=== PATIENT | female | born 1945 | race Two or more races ===

== ENCOUNTER 2017-01-01 12:47 | Emergency (ER) | payer MEDICAID ==
[~2017-01-01] VITALS: Ht 160 cm; Wt 59.9 kg
[2017-01-01] MEDS ORDERED: NKM (12:59)
[2017-01-01 13:04] VITALS: BP 149/80
--- NOTE | 2017-01-01 13:24 | Emergency Room Report ---
History of Present Illness General Chief Complaint: Upper Respiratory Illness Source: Patient (EFRAÍN NARVAEZ) Present Illness HPI The patient is a 71-year-old female presenting for multiple complaints including subjective fevers, nasal congestion, headache, tooth pain, and lower back pain. She states that the lower back pain has been chronic and has not been able to obtain and MRI due to lack of insurance. Pain is described as a 6/ 10 dull ache to the mid lower back and does not radiate. Worse with movement. She denies any numbness or tingling. She denies any incontinence. Tooth pain described as an 8/10 dull ache to the right upper teeth and is worse with chewing. She states that she had dental work done several months prior to this area. She denies any other symptoms including N, V, SOB, CP, sore throat, cough, hemoptysis, abd pain, dysuria, vaginal DC, diarrhea, constipation (EFRAÍN NARVAEZ) Allergies: Coded Allergies: No Known Allergies (Unverified , 01/01/17) Patient History Past Medical History: see triage record Pertinent Family History: none Reviewed Nursing Documentation: PMH: Agreed, PSxH: Agreed (EFRAÍN NARVAEZ) Nursing Documentation-PMH Past Medical History: No Stated History (EFRAÍN NARVAEZ) Review of Systems All Other Systems: negative except mentioned in HPI (EFRAÍN NARVAEZ) Physical Exam Vital Signs Date Time Temp Pulse Resp B/P (MAP) Pulse Ox O2 Delivery O2 Flow Rate FiO2 01/01/17 12:55 97.7 73 16 149/80 98 Room Air Sp02 EP Interpretation: reviewed, normal General Appearance: no apparent distress, alert, GCS 15, non-toxic Head: normocephalic, atraumatic Eyes: bilateral eye normal inspection, bilateral eye PERRL ENT: hearing grossly normal, normal pharynx, no angioedema, normal voice, other - R upper teeth are false. Minimal erythema to gumline. Respiratory: chest non-tender, lungs clear, normal breath sounds, no accessory muscle use, no wheezing, speaking full sentences Cardiovascular #1: regular rate, rhythm, no edema Musculoskeletal: back normal, gait/station normal, normal range of motion, non- tender Neurologic: alert, oriented x3, responsive, motor strength/tone normal, sensory intact, speech normal Psychiatric: judgement/insight normal, memory normal, mood/affect normal, no suicidal/homicidal ideation Skin: normal color, no rash, warm/dry, well hydrated Lymphatic: adenopathy - R cervical (EFRAÍN NARVAEZ) Medical Decision Making PA Attestation Dr. Bang is my supervising physician. Patient management was discussed with my supervising physician (EFRAÍN NARVAEZ) Medicare Attestation Chet Chacko MD hereby attest that the medical record entry accurately reflects signatures/notations that I made in my capacity as MD when I treated/ diagnosed the above listed Medicare beneficiary. I attest that this information is true, accurate and complete to the best of my knowledge. I understand that any falsification, omission, or concealment of material fact may subject me to administrative, civil, or criminal liability. This patient warrants hospital admission for extreme of age and has a condition that cannot be treated as outpatient. (Chet Bang M.D.) Diagnostic Impression: Primary Impression: Back pain Qualified Codes: M54.5 - Low back pain; G89.29 - Other chronic pain Additional Impression: Dental infection ER Course The patient is a 71-year-old female presenting for multiple complaints including subjective fevers, tooth pain, and back pain Ddx considered include but not limited to lumbar strain, degenerative disease, chronic pain, narcotic dependency. Diagnoses considered but not limited to: Dental bridger, dental abscess, toothache , gingivitis, pharyngitis, among others PE: Afebrile. NAD HEENT: Oropharynx unremarkable. No erythema. No tonsillar edema. There is a row of right upper false teeth. When removed, there is erythema to gums. Tender. There is right-sided cervical lymphadenopathy Back: Non tender to palpation. No midline tenderness. AROM intact. Normal gait. No CVA tenderness Otherwise exam unremarkable Chest x-ray and urinalysis unremarkable The patient will be treated for dental infection and back pain. The patient will be discharged home and told that she needs to obtain a primary doctor and dentist for further care. She is given information for free clinics. She also requests a multivitamin prescription. ER precautions given Laboratory Tests Test 01/01/17 13:08 Urine Color Pale yellow Urine Appearance Clear Urine pH 7 (4.5-8.0) Urine Specific [place] 1.010 (1.005-1.035) Urine Protein Negative (NEGATIVE) Urine Glucose (UA) Negative (NEGATIVE) Urine Ketones Negative (NEGATIVE) Urine Occult Blood Negative (NEGATIVE) Urine Nitrite Negative (NEGATIVE) Urine Bilirubin Negative (NEGATIVE) Urine Urobilinogen Normal MG/DL (0.0-1.0) Urine Leukocyte Esterase Negative (NEGATIVE) Lab Results Impression Unremarkable (EFRAÍN NARVAEZ P.A.) ER Course I have reviewed the PA's interpretation of Xray results and agree with findings. (Chet Bang M.D.) Chest X-Ray Diagnostic Results Chest X-Ray Diagnostic Results : Chest X-Ray Ordered: Yes # of Views/Limited/Complete: 1 View Indication: Other - fatigue EP Interpretation: Yes PA Xray: Interpretation reviewed, by supervising MD, and agrees with findings. Interpretation: no consolidation, no effusion, no pneumothorax, no acute cardiopulmonary disease Impression: No acute disease Electronically Signed by: KRISTA Mendes Scribe Text My and my supervising physician's interpretation of the chest xrays are there is no consolidation, no effusion, no acute cardiopulmonary disease, no pneumothorax (EFRAÍN NARVAEZ P.A.) Last Vital Signs Date Time Temp Pulse Resp B/P (MAP) Pulse Ox O2 Delivery O2 Flow Rate FiO2 01/01/17 13:04 97.7 74 16 149/80 98 Room Air Status: improved (ELIEL NARVAEZY P.A.) Disposition: HOME, SELF-CARE Condition: Improved Scripts Amoxicillin* (AMOXIL*) 500 Mg Capsule 500 MG ORAL Q12HR, #20 CAP Prov: TERZIAN,EFRAÍN P.A. 01/01/17 Tramadol Hcl* (ULTRAM*) 50 Mg Tablet 50 MG ORAL Q6H Y for For Pain, #8 TAB 0 Refills Prov: TERZIAN,EFRAÍN P.A. 01/01/17 Acetaminophen* (TYLENOL EXTRA STRENGTH*) 500 Mg Tablet 500 MG ORAL Q8H Y for Prn Headache/Temp > 101, #30 TAB 0 Refills Prov: TERZIAN,EFRAÍN P.A. 01/01/17 Multivitamin (Multivitamins) 1 Each Tablet 1 EACH PO DAILY, #30 TAB Prov: TERMARINEFRAÍN P.A. 01/01/17 Referrals: NOT CHOSEN [facility]/,REFERRING (PCP) EFRAÍN NARVAEZ Jan 01, 2017 13:24 Chet Bang M.D. Jan 04, 2017 06:44
[2017-01-01 13:49] LABS: APPEARANCE,URINE CLEAR; KETONES,URINE NEGATIVE (NEGATIVE); NITRITE,URINE NEGATIVE (NEGATIVE); PH,URINE 7 (4.5-8.0); PROTEIN,URINE NEGATIVE (NEGATIVE); UROBILINOGEN,URINE NORMAL MG/DL (0.0-1.0)
[2017-01-01 14:03] LABS: LEUKOCYTE ESTERASE ,URINE NEGATIVE (NEGATIVE)
[2017-01-01] MEDS ORDERED: TYLENOL EXTRA500 MG ORAL (14:21)
[2017-01-01] MEDS ORDERED: AMOXICILLIN500 MG ORAL (14:21)
[2017-01-01] MEDS ORDERED: MULTIVITAMINS1 EA14 PO (14:21)
[2017-01-01] MEDS ORDERED: TRAMADOL HCL50 MG ORAL (14:21)
[2017-01-01 14:28] VITALS: BP 149/80
--- NOTE | 2017-01-02 10:10 | Diagnostic Imaging Report ---
Indication: COUGH Technique: One view of the chest Comparison: none Findings: Lungs and pleural spaces are clear. Heart size is normal Impression: No acute process
== END 2017-01-01 14:33 | disposition home or self-care (01) ==
LOC: EMR 13:05
DX: M54.5 Low back pain (principal); K04.7 Periapical abscess without sinus; G89.29 Other chronic pain; R59.0 Localized enlarged lymph nodes
CPT/HCPCS: 71010; 81003; 99284